=== PATIENT | male | born 1975 | race Two or more races ===

== ENCOUNTER 2018-06-20 10:52 | Emergency (ER) | payer SELFPAY ==
[2018-06-20] MEDS ORDERED: MORPHINE SULFATE 4 MG/ML DISP.SYRIN. IV (12:00)
== END 2018-06-20 12:45 | disposition left against medical advice (07) ==
LOC: ER 12:45
DX: S62.101A Fracture of unspecified carpal bone, right wrist, initial encounter for closed fracture (principal); E78.00 Pure hypercholesterolemia, unspecified; Z88.8 Allergy status to other drugs, medicaments and biological substances; V29.9XXA Motorcycle rider (driver) (passenger) injured in unspecified traffic accident, initial encounter; Y93.89 Activity, other specified; Y92.89 Other specified places as the place of occurrence of the external cause; Y99.8 Other external cause status
CPT/HCPCS: 29125; 73110; 99284